=== PATIENT | female | born 1970 | race Caucasian/White ===

== ENCOUNTER → 2017-07-21 | Outpatient (CLI) | payer OTHER | LOC: CIMAGING 11:43 → EDSTATUS 11:48 → CIMAGING 11:49 | PROVIDERS: ATTEND Internal Medicine Endocrinology, Diabetes & Metabolism | DX: J98.4 Other disorders of lung (principal); R05 Cough; R50.9 Fever, unspecified | CPT/HCPCS: 71020-PO ==

== ENCOUNTER 2017-08-11 12:34 | Emergency (ER) | payer OTHER ==
[2017-08-11] MEDS ORDERED: NS 1,000 ML IV ONE ×3 (12:53→14:57)
[2017-08-11 12:56] VITALS: RESP 18
[2017-08-11 13:33] LABS: % IMMATURE GRANULYOCYTES 0.2 % (0.0-1.1); ABSOLUTE IMMATURE GRANULOCYTES 0.03 10^3/uL (0.00-0.10); ADD DIFF? NO; ADD MORPH? NO; ADD SCAN? NO; ATYPICAL LYMPHOCYTE FLAG 0 (0-99); FRAGMENT RBC FLAG 0 (0-99); HEMATOCRIT 39.1 % (38.0-47.0); HEMOGLOBIN 13.5 g/dL (12.6-16.3); LEFT SHIFT FLG 0 (0-99); LIPEMIA HEMOLYSIS FLAG 90 (0-99); MEAN CELL HEMOGLOBIN 31.3 pg (27.9-34.1); MEAN CELL HEMOGLOBIN CONCENTR. 34.5 g/dL (32.4-36.7); MEAN CELL VOLUME 90.7 fL (81.5-99.8); MEAN PLATELET VOLUME 9.7 fL (8.7-11.7); PLATELET CLUMPS FLAG 0 (0-99); PLATELET COUNT 243 10^3/uL (150-400); RED BLOOD CELL COUNT 4.31 10^6/uL (4.18-5.33); RED CELL DISTRIBUTION WIDTH 12.2 % (11.5-15.2)
[2017-08-11 13:46] LABS: ALANINE AMINOTRANSFERASE 31 IU/L (9-52); ALKALINE PHOSPHATASE 65 IU/L (38-126); ANION GAP 13 mEq/L (8-16); ASPARTATE AMINOTRANSFERASE 19 IU/L (14-46); CALCIUM 9.2 mg/dL (8.5-10.4); CARBON DIOXIDE 20 mEq/l (22-31); CHLORIDE 104 mEq/L (97-110); CREATININE 0.6 mg/dL (0.6-1.0); GLOMERULAR FILTRATION RATE > 60; GLUCOSE 96 mg/dL (70-100); POTASSIUM 3.9 mEq/L (3.5-5.2); SODIUM 137 mEq/L (134-144); TOTAL PROTEIN 6.9 g/dL (6.3-8.2)
[2017-08-11 14:18] VITALS: TEMP 99.1
[2017-08-11] MEDS ORDERED: PROMETHAZINE HCL 25 MG/ML INJ IVP ONE ×2 (14:20→14:56)
[2017-08-11] MEDS ORDERED: ACETAMINOPHEN 500 MG TAB PO ONE (14:34)
--- NOTE | 2017-08-11 15:17 | EDPHY ---
H & P Stated Complaint: N/V/D 1 WEEK AGO, FEVER TODAY, RECENT ABX TREATMENT Source: Patient Exam Limitations: No limitations - Personal History LMP (Females 10-55): 22-28 Days Ago - Medical/Surgical History Other PMH: DENIES - Family History Significant Family History: No pertinent family hx - Social History Smoking Status: Never smoked Alcohol Use: Rarely Drug Use: None Time Seen by Provider: 08/11/17 12:47 HPI/ROS: This patient presents with fever, vomiting diarrhea and fatigue. Her recent history is notable for a diagnosis of community-acquired pneumonia seen at the [facility] at the end of June and treated with doxycycline. She took a 10 day course without resolution of her fever/cough and was then treated with Augmentin after consult with her primary physician, Dr. Duncan. She completed a week of Augmentin the night before presentation with resolution of her fever and improvement in her cough to near resolution. However, she developed fever early this morning to 103 (101 on another thermometer) associated with chills, vomiting a few times described as yellow emesis and also diarrhea. She reports some loose stools this week but today's stool has more of a mucoid appearance to it. She reports a few episodes this morning. She had no bloody stools, no hematemesis or coffee-ground emesis. She has an associated frontal headache mild intensity 3/10 similar to prior headaches with fevers. She is concerned about potential C diff colitis given her recent antibiotics and the mucoid appearing stool. She felt some lightheadedness at home around the time of her vomiting and diarrhea but was able a ambulate and arrive by private vehicle with no presyncopal symptoms. ROS: Constitutional as per HPI. Fatigue today. HEENT: Mildly hoarse voice since the onset of the respiratory illness that is improving. No sore throat. No sinus pain. Neuro: No confusion. No focal numbness tingling weakness. Cardiovascular: No heart palpitations. No chest pain. No lower extremity swelling or calf pain. GI: Mild lower belly cramping. No upper belly pain. Otherwise as per HPI. : No dysuria, frequency, urgency, vaginal discharge. Last menstrual period was normal timing 2 weeks ago. Endocrine: No complaints Integumentary: No skin rash Musculoskeletal: Myalgias. Complete review of symptoms is otherwise negative. (Santiago White) - Social History Additional Social History: No recent travel The patient is an Oncologist on our Medical Staff at [facility] (Santiago White) - Physical Exam Exam: Initial vital signs notable for tachycardia to 113, blood pressure 95/70 which patient states is baseline for her. O2 sat 94% other vitals normal. General Appearance: Alert, no distress. Eyes: Pupils equal and round no pallor or injection. ENT, Mouth: Mucous membranes moist. Respiratory: Mild rales at the left base. Otherwise clear to auscultation bilaterally. Cardiovascular: Tachycardic with no murmur gallop rub. No JVD. No peripheral edema. Gastrointestinal: Abdomen is soft and nontender, no masses, bowel sounds normal. Neurological: GCS 15. Skin: Warm and dry, no rashes. Musculoskeletal: Neck is supple nontender. Extremities are symmetrical, full range of motion. Psychiatric: Mood and affect normal. DIFFERENTIAL DIAGNOSIS: After history and physical exam differential diagnosis was considered for C diff colitis, gastroenteritis, dehydration, persistent pneumonia, influenza or other viral illness (Santiago White) Constitutional: Initial Vital Signs Temperature (C) 37.4 C 08/11/17 12:54 Heart Rate 113 H 08/11/17 12:54 Respiratory Rate 18 08/11/17 12:54 Blood Pressure 95/70 L 08/11/17 12:54 O2 Sat (%) 94 08/11/17 12:54 O2 Delivery Mode Room Air Allergies/Adverse Reactions: No Known Allergies Allergy (Unverified 08/11/17 12:52) Home Medications: Medication Instructions Recorded Lexapro 08/11/17 Promethazine HCl [Phenergan 25 mg SC Q6 PRN #4 suppr 08/11/17 Rectal] Promethazine HCl [Phenergan 25mg 25 mg PO Q6 PRN #8 tab 08/11/17 (*)] Vancomycin [Vancomycin (*)] 125 mg PO QID #40 cap 08/11/17 Wellbutrin Xl 08/11/17 Medical Decision Making - Diagnostics Imaging: I viewed and interpreted images myself - Diagnostics Imaging Results: Chest x-ray: Resolution of infiltrate when compared to prior chest x-ray by my interpretation. (Santiago White) ED Course/Re-evaluation: 4:15 p.m., the patient is tolerating oral fluids well. She wishes to be discharged with plan as above by Dr. Lv Jacob. She was discharged in good condition. (Pedro Brito) IV normal saline bolus times 2 L Orthostatics after 2 L-negative for significant pulse or blood pressure change with minimal lightheadedness. Phenergan 12.5 mg IV with imcomplete resolution of nausea with repeat Phenergan dose - resolution of nausea. Tylenol p. o. for myalgias 3rd L normal saline I consulted Radiology-Dr. Robinson Parr and reviewed her chest x-ray to confirm my impression of resolution of her infiltrate that was evident on her previous CXR. Discussion: While patient has mild persistent rales it seems that her pneumonia has resolved radiographically and she has minimal respiratory symptoms at this time. Given her new onset of fevers associated with GI symptoms-mucoid stools and vomiting, as well as lower belly cramping, suspect C diff colitis. PCR stool and respiratory pathogens is sent to the hospital shortly after 2:00 p.m. with results pending. Her CBC reveals mild leukocytosis. Metabolic profile is normal. Her venous lactate is normal. Patient is not septic I offered admission to the patient given her lightheadedness and significant fever pending further workup but she declines admission at this time preferring further control of nausea and hydration with plan to go home. I consulted Dr. Lizz Jacob, infectious Disease regarding the patient. The plan is to treat the patient empirically with Vanco 125 four times daily to cover C diff with close follow up with Dr. Jacob. She will be treated with Phenergan orally or rectally for nausea. She will return to the emergency department if she has any worsening of her symptoms despite the treatment plan At 3:27 p.m. the patient is improving with IV hydration and antiemetics with plan for home with close follow up with Dr. Jacob within the next 48 hours- infectious disease. The patient understands the need to return to the emergency department should she have any worsening of her symptoms despite the treatment plan. Treat her empirically for C diff pending the C diff PCR results. I spoke with Dr.Lock Mobley, [facility] emergency physician at change of shift to understands the disposition plan, patient's history and findings here today. (Santiago White) - Data Points Laboratory Results: Laboratory Results 08/11/17 13:30 08/11/17 13:30 Medications Given: Discontinued Medications Acetaminophen (Tylenol) 1,000 mg PO EDNOW ONE Stop: 08/11/17 14:35 Last Admin: 08/11/17 14:42 Dose: 1,000 mg Sodium Chloride (Ns) 1,000 mls @ 0 mls/hr IV ONCE ONE; Wide Open PRN Reason: Protocol Stop: 08/11/17 12:54 Last Admin: 08/11/17 13:23 Dose: 1,000 mls Sodium Chloride (Ns) 1,000 mls @ 0 mls/hr IV EDNOW ONE; Wide Open PRN Reason: Protocol Stop: 08/11/17 13:24 Last Admin: 08/11/17 14:15 Dose: 1,000 mls Sodium Chloride (Ns) 1,000 mls @ 0 mls/hr IV EDNOW ONE; Wide Open PRN Reason: Protocol Stop: 08/11/17 14:58 Last Admin: 08/11/17 15:04 Dose: 1,000 mls Promethazine HCl (Phenergan) 12.5 mg IVP EDNOW ONE Stop: 08/11/17 14:21 Last Admin: 08/11/17 14:25 Dose: 12.5 mg Promethazine HCl (Phenergan) 12.5 mg IVP EDNOW ONE Stop: 08/11/17 14:57 Last Admin: 08/11/17 15:03 Dose: 12.5 mg Departure - Departure Disposition: Home, Routine, Self-Care Clinical Impression: Colitis, Dehydration Condition: Good Instructions: Colitis (ED) Additional Instructions: Diagnosis: 1. Colitis 2. Dehydration Plan: Stop Augmentin Phenergan for nausea vomiting as needed. Light diet to feel improved Probiotics Vancomycin tabs 1 4 times a day for [address] Jacob-infectious disease for follow-up within the next 1-2 days Return to the emergency department for any significant worsening of her symptoms despite the treatment plan Referrals: Carol Black MD [Primary Care Provider] - As per Instructions Prescriptions: Promethazine HCl [Phenergan Rectal] 25 mg SC Q6 PRN #4 suppr PRN Reason: Nausea/Vomiting With Chemo Promethazine HCl [Phenergan 25mg (*)] 25 mg PO Q6 PRN #8 tab PRN Reason: nausea Vancomycin [Vancomycin (*)] 125 mg PO QID #40 cap
[2017-08-11 16:33] VITALS: BP 99/55; PULSE 103; O2SAT 93
== END 2017-08-11 16:15 | disposition home or self-care (01) ==
LOC: CED 12:34
DX: K52.9 Noninfective gastroenteritis and colitis, unspecified (principal); E86.0 Dehydration; E86.9 Volume depletion, unspecified
CPT/HCPCS: 71020-PO; 80053-PO; 83605-PO; 85025-PO; 96374; J2550

== ENCOUNTER → 2017-10-01 | Outpatient (CLI) | payer OTHER | LOC: FIMAGING 10:20 | PROVIDERS: ATTEND Internal Medicine | DX: Z12.31 Encounter for screening mammogram for malignant neoplasm of breast (principal) | CPT/HCPCS: G0202 ==

== ENCOUNTER → 2018-10-25 | Outpatient (CLI) | payer OTHER | LOC: FIMAGING 08:47 | PROVIDERS: ATTEND Internal Medicine | DX: Z12.31 Encounter for screening mammogram for malignant neoplasm of breast (principal) ==